=== PATIENT | female | born 1990 | race Caucasian/White ===

== ENCOUNTER 2019-08-21 05:10 | Observation (INO) | payer BC ==
[~2019-08-21] VITALS: Ht 157.5 cm; Wt 67.0 kg
[2019-08-21 07:03] LABS: BASO % 0.2 % (0.0-2.0); GRAN # 9.9 (1.4-6.5); GRAN % 86.7 % (42.2-75.2); HEMATOCRIT 41.5 % (37.0-47.0); HEMOGLOBIN 14.1 g/dl (12.5-16.0); LYMPH % 9.1 % (20.0-51.0); MEAN CELL VOLUME 81 fl (80.0-100.0); MEAN CORPUSCULAR HEMOGLOBIN 28 pg (27.0-31.0); MEAN CORPUSCULAR HGB CONC 34 g/dl (33.0-37.0); MONO # 0.4 (0.1-0.6); MONO % 3.7 % (1.7-9.3); PLATELET COUNT 260 K/mm3 (130-400)
[2019-08-21 07:13] LABS: ALANINE AMINOTRANSFERASE 22 U/L (9-52); ALBUMIN 4.5 gm/dL (3.5-5.0); ALKALINE PHOSPHATASE 133 U/L (50-136); ANION GAP 11 mmol/L (7-16); AST,SGOT 24 U/L (15-37); BILIRUBIN,TOTAL 0.4 mg/dL (0.0-1.0); BLOOD UREA NITROGEN 11 mg/dL (7-17); CALCIUM 9.4 mg/dL (8.4-10.2); CARBON DIOXIDE 22 mmol/L (22-30); CHLORIDE 106 mmol/L (98-107); CREATININE, serum 0.62 (0.52-1.25); GLUCOSE 130 mg/dL (74-106); LIPASE 109 U/L (23-300); POTASSIUM 3.9 mmol/L (3.4-5.0); SODIUM 140 mmol/L (137-145); TOTAL PROTEIN 7.9 gm/dL (6.4-8.2)
[2019-08-21 07:16] LABS: C-REACTIVE PROTEIN < 0.5 mg/dL (0.0-0.9)
[2019-08-21 11:50] LABS: COLLECTION METHOD CLEAN CATCH
[2019-08-21 12:02] LABS: MUCOUS Present /lpf; PH 6 (5-8); SQUAMOUS EPITHELIAL 0-2 /hpf; URINE APPEARANCE Clear; URINE BACTERIA None Seen /hpf; URINE BILIRUBIN Negative (NEGATIVE); URINE BLOOD Negative (NEGATIVE); URINE COLOR Yellow; URINE GLUCOSE Negative (NEGATIVE); URINE KETONE Negative (NEGATIVE); URINE LEUKOCYTE ESTERASE Negative (NEGATIVE); URINE NITRATE Negative (NEGATIVE); URINE PROTEIN(semi-quant) Negative (NEGATIVE); URINE RBC 0-2 /hpf; URINE UROBILINOGEN Negative (NEGATIVE)
[2019-08-21 12:21] VITALS: BP 110/59; PULSE 80; TEMP 98.7
--- NOTE | 2019-08-21 13:30 | NUR ---
Patient alert and oriented, answers questions appropriately. See assessment. Abdomen soft, non tender, non distended. Bowel sounds active x4 quads. +Flatus. No c/o abdominal pain or discomfort. No other c/o at this time.
--- NOTE | 2019-08-21 16:00 | NUR ---
Patient reports she has had two bowel movements, passed gas. Able to tolerated full liquids, requests to go home. Dr Arana notified.
[2019-08-21 17:04] VITALS: BP 106/59; PULSE 78; TEMP 98.5
--- NOTE | 2019-08-21 18:20 | NUR ---
Patient again requests to go home. Dr Arana notified. See orders.
[2019-08-21 19:56] VITALS: BP 114/63; PULSE 88; TEMP 98.1
== END 2019-08-21 20:48 | disposition home or self-care (01) ==
LOC: COL.ER 05:10 → SURG 09:24
PROVIDERS: Emergency Medicine; ADMIT Surgery
DX: K56.600 Partial intestinal obstruction, unspecified as to cause (principal)
CPT/HCPCS: C9113; J1170; J2550; J7030; Q9967